=== PATIENT | female | born 1960 | race Caucasian/White ===

== ENCOUNTER 2017-11-22 08:11 | Day surgery (SDC) | payer OTHER ==
[~2017-11-22 08:11] MED LIST: PROTONIX20 MG PO; SYNTHROID88 MCG PO; ZOCOR20 MG PO
== END 2017-11-22 14:40 | disposition home or self-care (01) ==
LOC: CIR.AMB 08:11
DX: G56.02 Carpal tunnel syndrome, left upper limb (principal)

== ENCOUNTER 2019-10-15 07:23 | Outpatient (CLI) | payer OTHER | END 2019-10-15 07:32 | disposition home or self-care (01) | LOC: SONOGRAMA 07:23 → MAMO-SONO 07:45 | DX: E04.2 Nontoxic multinodular goiter (principal) ==

== ENCOUNTER 2019-10-15 08:19 | Outpatient (CLI) | payer OTHER | END 2019-10-15 08:31 | disposition home or self-care (01) | LOC: NUCLEAR 08:19 | PROVIDERS: ATTEND Internal Medicine Endocrinology, Diabetes & Metabolism | DX: M85.89 Other specified disorders of bone density and structure, multiple sites (principal); Z13.820 Encounter for screening for osteoporosis ==

== ENCOUNTER 2019-12-17 13:36 | Outpatient (CLI) | payer OTHER | END 2019-12-17 13:45 | disposition home or self-care (01) | LOC: MAMO-SONO 13:36 | PROVIDERS: ATTEND Internal Medicine Endocrinology, Diabetes & Metabolism | DX: Z12.31 Encounter for screening mammogram for malignant neoplasm of breast (principal); Z12.39 Encounter for other screening for malignant neoplasm of breast ==

== ENCOUNTER 2020-08-04 09:56 | Outpatient (CLI) | payer OTHER | END 2020-08-04 09:57 | disposition home or self-care (01) | LOC: NUCLEAR 09:56 | PROVIDERS: ATTEND Physical Medicine & Rehabilitation | DX: M19.29 Secondary osteoarthritis, other specified site (principal) | CPT/HCPCS: 78306; A9503 ==

== ENCOUNTER 2020-09-28 13:01 | Emergency (ER) | payer OTHER ==
[~2020-09-28] VITALS: Ht 160 cm; Wt 65.8 kg
[2020-09-28] MEDS ORDERED: KETO10TA2 PO (16:03)
[2020-09-28] MEDS ORDERED: NORFLEX100MG PO (16:03)
== END 2020-09-28 16:46 | disposition home or self-care (01) ==
LOC: ER 13:01
DX: M54.2 Cervicalgia (principal)

== ENCOUNTER 2021-09-15 19:38 | Emergency (ER) | payer OTHER ==
[~2021-09-15] VITALS: Ht 160 cm; Wt 68.0 kg
[~2021-09-15 19:38] MED LIST changes: +KETO10TA2 PO; +NORFLEX100MG PO
== END 2021-09-15 20:37 | disposition home or self-care (01) ==
LOC: ER 19:38
DX: M25.572 Pain in left ankle and joints of left foot (principal); W18.30XA Fall on same level, unspecified, initial encounter; Y93.01 Activity, walking, marching and hiking; Y92.413 State road as the place of occurrence of the external cause